=== PATIENT | male | born 1970 | race African-American/Black ===

== ENCOUNTER 2017-10-04 10:53 | Day surgery (SDC) | payer OTHER ==
--- NOTE | 2017-10-03 10:07 | EKG ---
Test Date: 2017-10-03 Test Time: 10:03:57 Ramp Lead: SABRA MEASUREMENT RESULTS: Intervals: Rate: 62 WV: 170 QRSD: 92 QT: 400 QTc: 406 [place]: P: 68 WV: 170 QRS: 77 T: 63 INTERPRETIVE STATEMENTS: Normal sinus rhythm Nonspecific T wave abnormality Abnormal ECG No previous ECG available for comparison Electronically Signed On 10-03-17 10:07:24 CDT by Omari Westfall
[2017-10-03 11:43] LABS: Absolute Lymphocytes (CBC) 2.4 K/uL (0.7-4.9); Absolute Monocytes 0.8 K/uL (0.1-1.3); Absolute Neutrophil 1.7 K/uL (1.8-8.0); Basophils % 1.5 % (0-1.3); Eosinophils % 6.8 % (0-4.4); Hematocrit 44.2 % (39.6-49.0); MCH 28.3 pg (27.0-35.0); MCV 87.2 fL (80-100); Monocytes % 14.7 % (3.3-12.3); RBC Red Blood Cell Count 5.07 M/uL (4.33-5.43)
[2017-10-04] MEDS ORDERED: Ringers Lactate 1,000 ML IV ONE (11:24)
[2017-10-04] MEDS ORDERED: LIDOCAINE 1% W/EPI 1:100,000 MDV 50 ML VIAL ONE ×2 (11:53→12:10)
[2017-10-04] MEDS ORDERED: BUPIVACA 0.5%/EPI 0.0005%/PF 30 ML VIAL ONE (12:10)
[2017-10-04] MEDS ORDERED: MIDAZOLAM HCL 2 MG/2 ML INJ ONE (12:18)
[2017-10-04] MEDS ORDERED: PROPOFOL 200 MG/20 ML VIAL IV ONE (12:18)
[2017-10-04] MEDS ORDERED: LIDOCAINE 2% MPF 5 ML VIAL ONE (12:19)
[2017-10-04] MEDS ORDERED: FENTANYL CITR 100 MCG/2 ML ONE (12:19)
[2017-10-04] MEDS ORDERED: GLYCOPYRROLATE 0.2 MG/ML SYR ONE (12:42)
[2017-10-04] MEDS ORDERED: ONDANSETRON 4 MG/2 ML VIAL ONE (13:32)
[2017-10-04] MEDS ORDERED: DEXAMETHASONE 10 MG/ML VIAL ONE (13:32)
--- NOTE | 2017-10-04 13:44 | P.BOP ---
Preoperative diagnosis: lipoma Postoperative diagnosis: same Primary procedure: excision subfacial mass, 5cm [employer] Department Chair: NONE,NONE Estimated blood loss: 10ml Specimen: left lower neck mass Findings: appearance consistant with lipoma Anesthesia: General Complications: None Implants: none Fluids & blood products: crystalloid 800ml Transferred to: Recovery Room Condition: Good
--- NOTE | 2017-10-05 15:31 | OP ---
Date of Procedure: 10/04/2017 Surgeon: Rosana Cook MD Preoperative Diagnosis: Cervical lipoma. Postoperative Diagnosis: Subfascial lipoma, maximum diameter 5 cm. Indication For Procedure: Robert Mahoney is a 46-year-old who presented with a slowly increasing neck mass located on the left lower portion of the supraclavicular triangle with some occasional tingling in his fingers, who desired removal. The risks, benefits, and alternatives to the procedure were dis cussed with the patient who agreed to proceed. Description Of Procedure: The patient was brought to the operating room. He was placed under genera l anesthesia via oral endotracheal tube. The head was turned slightly to the right for exposure of t he left neck. The mass of interest was easily palpable in the lower portion of the subclavicular tri angle and on palpation what seemed to be superficial and approximately 4-6 cm in size. The planned i ncision was designed parallel to relaxed skin tension lines and was injected with local anesthetic. The neck was prepped and draped in the standard fashion. A 4 cm incision was made over the central p ortion of the mass using 15 blade scalpel. The subcutaneous flaps were developed using Bovie electro cautery and the surface of the mass was identified. The Bovie electrocautery was used to dissect alyssa und the superficial edge moving toward the anterior aspect. Platysma muscle was noted with a mass di ving deep to the platysma muscle and platysmal fibers were divided to allow for better identification of the surface and complete removal. The dissection continued and the posterior aspect of the wu ocleidomastoid muscle was identified. This was carefully dissected from the surface of the fatty erika or and the muscle was retracted anteriorly. The mass was somewhat lobulated in this area and careful dissection around the lobulations was undertaken anteriorly superiorly. The small amount of bleedin g was encountered, but it was difficult to identify discrete vessel. Ray-Osmel packing was applied in this area and left in place for several minutes to aid in hemostasis. While awaiting that the catalyst unit operator ior inferior aspect of the mass was continually dissected from the surrounding tissues. The incision was felt to be slightly too small to allow for good identification and visualization of the mass and surrounding structures, so the incision was extended by approximately 1 cm. This allowed for better retraction of the tissues and visualization of the borders of the mass. The ligature was then emplo yed to ligate and divide the posterior aspect of the mass from the surrounding fatty tissue. The mas s did appear well encapsulated and the color of the mass was slightly more yellow than the surroundin g subcutaneous tissues. The packing from the anterior superior portion was removed and hemostasis wa s felt to be good. The LigaSure was then used to divide around this area and along the superior bord er of the mass. The mass was then rotated from an anterior superior direction to a posterior inferio r direction and the deep aspect of the mass was carefully dissected off underlying tissues. Moderate -sized vessels were identified and carefully preserved and dissection of the brachial plexus was avoi ded. The final soft tissue attachments were divided and the area was carefully inspected in the init ial area of bleeding in the superior anterior aspect of the surgical field. There was no active blee ding, but there was some concern that with Valsalva movement. This area may begin to bleed again. T he tissues in this area were grasped, clamped, and ligated with a 2-0 silk suture and appeared hemost atic. The incision was then closed in a layered fashion using 4-0 Vicryl with 5-0 fast-absorbing run nicky suture for the skin. Direct pressure was applied for several moments in order to push trapped a ir out of the wound. Triple antibiotic ointment was applied. The area was cleaned and dried and a g auze dressing with Tegaderm was applied to the incision. The patient was returned to care of anesthe sukhdev for awakening and extubation in the operating room, which proceeded without difficulty. Specimen: Left lower neck mass with gross dimensions of 5 x 3.5 cm will be sent to pathology for con firmation, but is clinically suspicious for lipoma. Disposition: The patient will follow up with Dr. Cook in 10 days for evaluation of wound healing and removal of any residual sutures. Wound care instructions were given to the patient's and he will be discharged home later today. XOCHILT Voice ID: [id number] Report ID: [id number]
== END 2017-10-04 15:15 | disposition home or self-care (01) ==
LOC: OR 10:53
PROVIDERS: ATTEND Otolaryngology
PROC: 0JB50ZZ Excision of Left Neck Subcutaneous Tissue and Fascia, Open Approach (ICD-10-PCS; principal; 2017-10-04 12:00)
DX: D17.0 Benign lipomatous neoplasm of skin and subcutaneous tissue of head, face and neck (principal); J45.909 Unspecified asthma, uncomplicated; K21.9 Gastro-esophageal reflux disease without esophagitis; Z88.6 Allergy status to analgesic agent; Z80.9 Family history of malignant neoplasm, unspecified; Z82.49 Family history of ischemic heart disease and other diseases of the circulatory system
CPT/HCPCS: 36415; 85025; 88304; 88305; 93005; J1100; J2250; J2405; J3010